=== PATIENT | male | born 1965 | race African-American/Black ===

== ENCOUNTER 2024-05-11 12:56 | Emergency (ER) | payer MEDICAID ==
[~2024-05-11] VITALS: Ht 175.3 cm; Wt 88.0 kg
[2024-05-11 13:02] VITALS: O2SAT 97
[2024-05-11] MEDS: TETANUS, DIPHTHERIA, PERTUSSIS VAC/PF 0.5ML (>10YR OLD) IM ONE (13:45)
[2024-05-11] MEDS ORDERED: BO1 TP (14:57)
[2024-05-11] MEDS: BACITRACIN ZINC OINT UDPKT TOP ONE (15:36)
[2024-05-11] MEDS: LIDOCAINE HCL/PF 1% 10 MG/ML 5ML VIAL INFIL ONE (15:36)
[2024-05-11 16:21] VITALS: BP 138/71; PULSE 88; RESP 17; TEMP 98.1
== END 2024-05-11 16:26 | disposition home or self-care (01) ==
LOC: ER 12:56
DX: S01.01XA Laceration without foreign body of scalp, initial encounter (principal); S09.90XA Unspecified injury of head, initial encounter; I10 Essential (primary) hypertension; W18.39XA Other fall on same level, initial encounter; Y93.89 Activity, other specified; Y92.89 Other specified places as the place of occurrence of the external cause; Y99.8 Other external cause status
CPT/HCPCS: 99285; 70450; 70486; 90715; 12002; 90471; 12013; J3490